=== PATIENT | female | born 1995 | race Caucasian/White ===

== ENCOUNTER 2019-10-20 07:00 | Day surgery (SDC) | payer OTHER ==
[2019-10-20] MEDS ORDERED: PROPOFOL INJ 200 MG/20 ML VIAL IV ONE ×2 (08:01→09:50)
[2019-10-20] MEDS ORDERED: LIDOCAINE 2% INJ-PF (20 MG/ML) 10 ML AMPUL ONE (08:01)
[2019-10-20] MEDS ORDERED: DIPHENHYDRAMINE HCL 50 MG/ML VIAL IV PRN (08:33)
[2019-10-20] MEDS ORDERED: ONDANSETRON HCL INJ/PF 4 MG/2 ML SDV IV PRN (08:33)
[2019-10-20] MEDS ORDERED: PROMETHAZINE HCL INJ 25 MG/1 ML VIAL IV PRN (08:33)
[2019-10-20 10:42] VITALS: BP 130/81
--- NOTE | 2019-10-20 11:20 | Operative Report ---
Operative Report DATE OF SURGERY: 10/20/19 Operative Report: The risk, benefits and alternatives of the procedure including the risk of bleeding, perforation requiring surgery have been explained to the patient in detail and informed consent has been obtained. The patient is placed in a left, lateral decubital position. Timeout was called. Propofol medication is administered. Rectal examination is done which did not reveal any masses, tears or fissures. An Olympus videoscope was inserted into the patient's rectum. Scope was then carefully advanced all the way to the cecum. Cecum was identified by the usual anatomical landmarks including the ileocecal valve as well as the appendiceal office. Photodocumentation is obtained. Scope was then sequentially pulled back via the various segments of the colon including the ascending colon, hepatic flexure, transverse colon, splenic flexure, descending colon finding to the rectosigmoid portions of the colon. Retroflexion maneuver is performed. Intubation of the terminal ileum is done. PREOPERATIVE DIAGNOSIS: Rectal bleeding POSTOPERATIVE DIAGNOSIS: Internal hemorrhoids. Right side colon Inflammation status post biopsy. Normal terminal ileum OPERATION: Colonoscopy with biopsy SURGEON: GORGE ALBERTS ANESTHESIA: LMAC TISSUE REMOVED OR ALTERED: As noted above. COMPLICATIONS: None. ESTIMATED BLOOD LOSS: None. INTRAOPERATIVE FINDINGS: As noted above. PROCEDURE: Patient tolerated the procedure well. No immediate postprocedure complications are noted. Patient is discharged in good condition. Discharge date 10/20/2019. Discharge diet: Regular. Discharge activity: Regular. 2 to 3-week follow-up to discuss findings. Patient is instructed to call the office or proceed to the emergency room should there be any further problems or questions. Wait on the pathology.
== END 2019-10-20 10:45 | disposition home or self-care (01) ==
LOC: OROUT 07:00
PROVIDERS: ATTEND Internal Medicine Gastroenterology
DX: K92.1 Melena (principal); K64.8 Other hemorrhoids; K52.9 Noninfective gastroenteritis and colitis, unspecified; Z79.899 Other long term (current) drug therapy
CPT/HCPCS: 45380; 88305 ×2; 00811; J2704; J3490; 811

== ENCOUNTER → 2020-03-24 | Outpatient (CLI) | payer OTHER | LOC: OD 11:10 → EDSTATUS 03-29 10:15 | PROVIDERS: ATTEND Otolaryngology | DX: Z03.818 Encounter for observation for suspected exposure to other biological agents ruled out (principal); J34.2 Deviated nasal septum | CPT/HCPCS: 87635; C9803 ==

== ENCOUNTER 2020-06-21 07:56 | Day surgery (SDC) | payer OTHER ==
[~2020-06-21 07:56] MED LIST: CEFAZOLIN 2 GM/D5W RTU 2 GM/50 ML RTUPB IV PRN; DEXAMETHASONE SOD PHOS INJ 10 MG/1 ML VIAL ONE; DEXMEDETOMIDINE INJ 80 MCG/20 ML VIAL IV ONE; FAMOTIDINE INJ/PF 20 MG/2 ML SDV IV ONE; FENTANYL CITRATE INJ/PF 100 MCG/2 ML AMPUL ONE; GLYCOPYRROLATE INJ 0.4 MG/2 ML VIAL ONE; LIDOCAINE 2% INJ-PF (100 MG/5 ML) SYRINGE ONE; MIDAZOLAM 2 MG/2 ML INJ ONE; ONDANSETRON HCL INJ/PF 4 MG/2 ML SDV ONE; PROPOFOL INJ 200 MG/20 ML VIAL IV ONE; SUCCINYLCHOLINE CHLORIDE INJ 200 MG/10 ML VIAL ONE
[2020-06-21] MEDS ORDERED: BUPIVACAINE HCL 0.5%/EPI 1:200000 INJ 1.8 ML CARTRIDGE ONE (08:58)
[2020-06-21] MEDS ORDERED: MINERAL OIL (STERILE) 10 ML VIAL ONE (08:58)
[2020-06-21] MEDS ORDERED: OXYMETAZOLINE HCL 0.05% NASAL SPRAY 15 ML BOTTLE ONE (08:58)
[2020-06-21] MEDS ORDERED: BACITRACIN ZINC OINTMENT 15 GM ONE (08:58)
[2020-06-21] MEDS ORDERED: EPHEDRINE SULFATE INJ 50 MG/1 ML AMPULE ONE (09:30)
[2020-06-21] MEDS ORDERED: MORPHINE SULFATE 10 MG/ML INJ ONE (09:30)
[2020-06-21] MEDS ORDERED: LACTATED RINGERS 1000 ML IV PRN (10:00)
[2020-06-21] MEDS ORDERED: SCOPOLAMINE HYDROBROMIDE 1.5 MG PATCH.TD72 TD ONE (10:30)
[2020-06-21] MEDS ORDERED: LIDOCAINE 1%/EPINEPHRINE INJ 20 ML VIAL ONE (10:32)
[2020-06-21] MEDS: TOBRAMYCIN SULFATE/DEXAMETH OPH OINTMENT 3.5 GM ONE ×2 (10:32→10:35)
[2020-06-21] MEDS ORDERED: FENTANYL CITRATE INJ/PF 100 MCG/2 ML AMPUL ONE ×2 (11:34→12:24)
[2020-06-21] MEDS: BALANCED SALT IRRIG SOLN COMB2 15 ML BOTTLE ONE ×2 (13:47→14:55)
[2020-06-21] MEDS ORDERED: PROMETHAZINE HCL INJ 25 MG/1 ML VIAL ONE (15:53)
--- NOTE | 2020-06-24 17:15 | Operative Report ---
Operative Report-[facility] Operative Report: DATE OF OPERATION: June 21, 2020 PREOPERATIVE DIAGNOSES: 1. Nasal septal deviation, Acquired 2. Bilateral inferior turbinate hypertrophy 3. Nasal Deformities, Acquired 4. Chronic Nasal Dyspnea 5. Bilateral nasal valve collapse/deficiency/stenosis 6. History of nasal trauma POSTOPERATIVE DIAGNOSES: 1. Nasal septal deviation, Acquired 2. Bilateral inferior turbinate hypertrophy 3. Nasal Deformities, Acquired 4. Chronic Nasal Dyspnea 5. Bilateral nasal valve collapse/deficiency/stenosis 6. History of nasal trauma PROCEDURES: 1. Rhinoplasty consisting of bilateral nasal valve repair with extensive cartilage grafts 2. Extensive septoplasty with major septal repair with cartilage grafting 3.. Bilateral intramural inferior turbinate reductions using submucus resection techniques SURGEON: Dr. Jos Mason Anesthesia Staff: KULWANT Tracey ANESTHESIA: General endotracheal tube anesthesia/GETA DRAINS: None SPONGE COUNT: Verified NEEDLE COUNT: Verified SPECIMEN/MATERIALS FORWARD TO THE LAB: None ESTIMATED BLOOD LOSS: 100 mL TOTAL IV FLUIDS: 1850 mL URINE OUTPUT: 875 mL COMPLICATIONS: None FINDINGS: 1. Nasal septal deviation involving bone and cartilage with severe caudal septal cartilage damage with fractures and the septum turned out a right angle into the left nasal passage with near complete obstruction. 2. Bilateral nasal valve collapse with compression/narrowing of the nasal passages. 3. Dorsal irregularities involving bone and cartilage. 4. Bilateral inferior turbinate hypertrophy in the appearance of a left chitra bullosa. INDICATIONS: This is a 25-year-old white female patient who was seen and evaluated in the [place] [facility] office. The patient was referred for and they complained of a history of chronic nasal dyspnea over the years and history of nasal trauma. The patient clinically is noted to have severe nasal septal deviations, bilateral turbinate hypertrophy, lateral nasal valve collapse/deficiencies, and nasal deformities. The patient has desired to undergo nasal surgery to improve functional nasal airflow and overall quality of life. The procedure/surgery, and all of the risks and complications were all discussed in detail with the patient. She voiced an understanding, agreed to proceed, and consent was obtained. DESCRIPTION OF OPERATIVE PROCEDURE: The patient was taken to the main operating room and placed on the operating room table in the supine position. Appropriate monitors were placed. Using mask and IV access general anesthesia was induced. The patient was then transorally intubated without difficulty. The table was next positioned for nasal surgery. The patient underwent a nasal examination and local anesthetic with epinephrine was administered to establish a nasal block. The patient next had two Afrin soaked neuropatties placed into each nasal passage. The patient was then prepped and draped in the usual fashion for nasal surgery. The neuropatties were removed and the patient underwent a hemitransfixion incision. There was elevation of the mucoperichondrial and mucoperiosteal flaps which was very difficult due to severe cartilage deformities and thin tenuous overlying mucosa with scattered small rents resulting. The bony cartilaginous junction was identified and divided and the most deviated portions of the bony and cartilaginous septum were removed without difficulty. The fractured caudal septal cartilage was mobilized with fracture lines isolated and divided with damaged cartilage removed. The anterior nasal spine was excessively prominent and a rongeur was used to modify this area. There was a greater than 1.5 X 1.5 cm cartilaginous L-Strut preserved. Attention was now turned to performing bilateral inferior turbinate reductions. The turbinate bipolar wand was used to make 2 - 3 intramural passes in each inferior turbinate. At this point the turbinate microdebrider system at a setting of 1500 RPM was used to perform bilateral inferior turbinate submucus resections. This was followed by use of the [place] elevator to outfracture each inferior turbinate. Excessive/redundant mucosa at the anterior portion of the inferior turbinates was next trimmed with margins reapproximated with chromic suture. At this point there were modified marginal incisions created bilateral followed by skin and soft tissue envelope over the nasal dorsum and precise pockets were created for the extended bilateral alar bo cartilage grafts. A dorsal rasp and modified 11 blade scalpel were used to address the dorsal irregularities consisting of bone and cartilage. At this point septal cartilage was used and fashioned into an extended robust caudal septal graft that was secured at the right caudal septum and secured in place with 5-0 Prolene suture. At this point the septal cartilage with graft was secured at the anterior nasal spine using 5- 0 clear nylon suture. Next, additional septal cartilage was fashioned into 2 robust extended alar bo grafts which were inserted into the left and right precise pockets in the nasal valve areas. At this point the nose was thoroughly irrigated and suctioned with reasonable hemostasis being noted. At additional septal cartilage was placed back between the mucosal flaps and banked. Mucosal rents were reapproximated with chromic suture. All incisions were reapproximated with chromic suture. This was followed by placement of Telfa bolsters inside and outside of the nose with through and through 5-0 Prolene suture to secure the alar bo grafts in place. This was followed by placement of intranasal supporting material consisting of modified Merocel packing one in each nasal passage that were secured at the caudal aspect with 4-0 Prolene suture. The nose was then cleaned and dried followed by placement of Mastisol and Steri-Strips over the nasal dorsum. Next, the patient was returned to the anesthesia staff and was allowed to emerge from general anesthesia. The patient was extubated in the main operating room and was then transported to the postanesthesia recovery unit in stable condition. There were no complications.
== END 2020-06-21 17:00 | disposition home or self-care (01) ==
LOC: SC 07:56
PROVIDERS: ATTEND Otolaryngology
DX: J34.2 Deviated nasal septum (principal); J34.3 Hypertrophy of nasal turbinates; M95.0 Acquired deformity of nose; R06.09 Other forms of dyspnea; J32.9 Chronic sinusitis, unspecified; J30.9 Allergic rhinitis, unspecified; Z01.812 Encounter for preprocedural laboratory examination; Z20.822 Contact with and (suspected) exposure to COVID-19
CPT/HCPCS: 30420; 20912; 30140; 87635; 00160; C1769; C1758; J2250; J3490 ×7; J3010; J2001; J2270; J2550; J0330; J2405; J2704; S0028; J1100; J0690; C9803; 160